=== PATIENT | female | born 1955 | race African-American/Black ===

== ENCOUNTER 2023-10-11 16:30 | Emergency (ER) | payer OTHER, BC ==
[2023-10-11 16:45] VITALS: BP 110/74; PULSE 65; RESP 16; TEMP 98.2; BMI 24.7
[2023-10-11] MEDS ORDERED: NAPROXEN 500 MG TABLET ONE (17:51)
[2023-10-11] MEDS: NAPROXEN 500 MG TABLET PO ONE (17:57)
== END 2023-10-11 18:39 | disposition home or self-care (01) ==
LOC: JER 16:30
DX: M54.2 Cervicalgia (principal); M26.623 Arthralgia of bilateral temporomandibular joint; R51.9 Headache, unspecified; R20.8 Other disturbances of skin sensation
CPT/HCPCS: 93005; 93010; 99283-25

== ENCOUNTER 2024-10-24 15:42 | Emergency (ER) | payer OTHER, BC ==
[2024-10-24 16:02] VITALS: BP 144/78; RESP 16; TEMP 97.8; BMI 25.7
[2024-10-24 16:03] VITALS: PULSE 64
[2024-10-24] MEDS ORDERED: LIDOCAINE 4% PATCH TP ONE (16:34)
[2024-10-24] MEDS ORDERED: KETOROLAC TROMETHAMINE 30 MG/1 ML VIAL ONE (16:34)
[2024-10-24] MEDS: LIDOCAINE 4% PATCH TP ONE (16:41)
[2024-10-24] MEDS: KETOROLAC TROMETHAMINE 30 MG/1 ML VIAL IM ONE (16:41)
[2024-10-24] MEDS ORDERED: LIDOCAINE PATCH REMOVAL MC SCH (22:00)
== END 2024-10-24 17:10 | disposition home or self-care (01) ==
LOC: JER 15:42
PROC: 3E0233Z Introduction of Anti-inflammatory into Muscle, Percutaneous Approach (ICD-10-PCS; principal; 2024-10-24)
DX: M54.50 Low back pain, unspecified (principal); R21 Rash and other nonspecific skin eruption
CPT/HCPCS: 99284-25

== ENCOUNTER 2024-10-25 05:15 | Observation (INO) | payer OTHER, BC ==
[2024-10-25] MEDS ORDERED: predniSONE 20 MG TABLET (UD) ONE (06:14)
[2024-10-25] MEDS ORDERED: diphenhydrAMINE HCL 25 MG CAPSULE (FP) PO ONE (06:14)
[2024-10-25] MEDS: diphenhydrAMINE HCL 25 MG CAPSULE (FP) PO ONE (06:26)
[2024-10-25] MEDS: predniSONE 20 MG TABLET (UD) PO ONE (06:27)
[2024-10-25 06:37] LABS: ABSOLUTE IMMATURE GRANULOCYTES 0.02 x10^3/uL (0.0-0.031); BASOPHILS # 0.06 x10^3/uL (0.01-0.08); EOSINOPHIL % 6.1 % (0.7-5.8); EOSINOPHILS # 0.42 x10^3/uL (0.04-0.36); HEMATOCRIT 39.4 % (34.1-44.9); HEMOGLOBIN 12.9 g/dL (11.2-15.7); MCHC 32.7 g/dl (32.2-35.5); MEAN CELL VOLUME 87.2 fl (79.4-94.8); MEAN PLT VOLUME 10.5 fl (9.4-12.3); MONOCYTE # 0.61 x10^3/uL (0.24-0.86); MONOCYTE % 8.9 % (4.7-12.5); PLATELET COUNT 298 x10^3/uL (182-369); RDW 12.3 % (12.4-16.4)
[2024-10-25 07:03] LABS: ACTIVATED PTT 37.8 SECONDS (25.2-36.5)
[2024-10-25 07:11] LABS: ALBUMIN 3.6 g/dl (3.4-5.0); BLOOD UREA NITROGEN 33.5 mg/dL (7-18); CALCIUM 9.7 mg/dL (8.5-10.1)
[2024-10-25 07:14] LABS: CREATININE 1.2 mg/dL (0.55-1.3)
[2024-10-25 07:16] LABS: BILIRUBIN,TOTAL 0.4 mg/dL (0.2-1)
[2024-10-25] MEDS ORDERED: TRANEXAMIC ACID 1000 MG/10 ML VIAL ONE (07:55)
[2024-10-25] MEDS: TRANEXAMIC ACID 1000 MG/10 ML VIAL IVPUSH ONE (08:02)
[2024-10-25] MEDS ORDERED: diphenhydrAMINE HCL 25 MG CAPSULE (FP) PO PRN (12:45)
[2024-10-25] MEDS ORDERED: ALBUTEROL SO4 2.5/IPRATROPIUM 0.5 INH SOL 3 ML VIAL.NEB. NEB PRN (12:46)
[2024-10-25 16:12] VITALS: BMI 24.5
[2024-10-26 06:10] VITALS: RESP 18
[2024-10-26 07:39] LABS: ABSOLUTE IMMATURE GRANULOCYTES 0.02 x10^3/uL (0.0-0.031); BASOPHILS # 0.03 x10^3/uL (0.01-0.08); EOSINOPHIL % 2.1 % (0.7-5.8); EOSINOPHILS # 0.14 x10^3/uL (0.04-0.36); HEMATOCRIT 36.3 % (34.1-44.9); MCHC 33.1 g/dl (32.2-35.5); MEAN CELL VOLUME 87.3 fl (79.4-94.8); MEAN PLT VOLUME 11.2 fl (9.4-12.3); MONOCYTE # 0.52 x10^3/uL (0.24-0.86); MONOCYTE % 7.8 % (4.7-12.5); PLATELET COUNT 293 x10^3/uL (182-369); RDW 12.4 % (12.4-16.4)
[2024-10-26 08:18] LABS: CALCIUM 9.4 mg/dL (8.5-10.1)
[2024-10-26 08:19] LABS: BLOOD UREA NITROGEN 23.5 mg/dL (7-18); MAGNESIUM 2.1 mg/dL (1.8-2.4)
[2024-10-26 08:22] LABS: CREATININE 1.1 mg/dL (0.55-1.3); PHOSPHOROUS 3.7 mg/dL (2.5-4.9)
[2024-10-26 08:23] LABS: BILIRUBIN,TOTAL 0.5 mg/dL (0.2-1); TOT PROT 6.3 g/dl (6.4-8.2)
[2024-10-26] MEDS: predniSONE 20 MG TABLET (UD) PO SCH (10:18)
[2024-10-26] MEDS: ENOXAPARIN NA (PORCINE) 40 MG/0.4 ML DISP.SYRIN SQ SCH (10:18)
[2024-10-26 13:51] VITALS: TEMP 98.2
[2024-10-26 17:31] VITALS: BP 117/72; PULSE 62
== END 2024-10-26 18:00 | disposition home or self-care (01) ==
LOC: JER 05:15 → JERBED 07:13 → J4W 14:42
PROVIDERS: ADMIT Student in an Organized Health Care Education/Training Program; ATTEND Internal Medicine
PROC: 3E033GC Introduction of Other Therapeutic Substance into Peripheral Vein, Percutaneous Approach (ICD-10-PCS; principal; 2024-10-25)
DX: T78.3XXA Angioneurotic edema, initial encounter (principal); X58.XXXA Exposure to other specified factors, initial encounter; Z88.8 Allergy status to other drugs, medicaments and biological substances
CPT/HCPCS: 36415; 36430; 80053; 83735; 84100; 85025; 85610; 85730; 86850; 86900; 86901; 96374; 99285-25; G0378; P9017